=== PATIENT | female | born 2000 | race Two or more races ===

== ENCOUNTER 2021-03-13 18:09 | Emergency (ER) | payer SELFPAY ==
[2021-03-13 19:08] LABS: ACETAMINOPHEN <2.0 ug/mL; BLOOD UREA NITROGEN,BUN 10 mg/dL (7.0-18.0); CARBON DIOXIDE,CO2 26.3 mmol/L (21.0-32.0); CHLORIDE,CL 101 mmol/L (98-107); GLUCOSE RANDOM 103 mg/dL (74-106); POTASSIUM,K 3.5 mmol/L (3.5-5.1); SODIUM,NA 139 mmol/L (136-145)
--- NOTE | 2021-03-13 19:18 | EDM.PDOC ---
ED HPI GENERAL MEDICAL PROBLEM - General Chief Complaint: Behavioral/Psych Stated Complaint: SUICIDAL IDEATION Time Seen by Provider: 03/13/21 18:38 Source of Information: Reports: Patient History Limitations: Reports: No Limitations - History of Present Illness INITIAL COMMENTS - FREE TEXT/NARRATIVE: HISTORY AND PHYSICAL: History of present illness: Patient is a 21-year-old female who presents emergency room today secondary to suicidal ideation with a plan to cut her throat. Patient states that she has had worsening suicidal ideation over the past 2 weeks and states that a few days ago, she had put a knife to her throat but had gotten interrupted so did not go through with the attempt. Patient states that since then, she has continual thoughts of wanting to kill her self and as she is sitting here she looks around the room and "can only think of killing myself." Patient also states that she would "give her life for anything" at this point. Patient states that she has had inpatient evaluation in the past back home but states that she has not had anything around [place]. Patient states that she is on multiple medications and takes these. Patient denies any other symptoms or concerns. Patient denies fever, chills, chest pain, shortness of breath, or cough. Denies headache, neck stiff ness, change in vision, syncope, or near syncope. Denies nausea, vomiting, abdominal pain, diarrhea, constipation, or dysuria. Has not noted any blood in urine or stool. Patient has been eating and drinking appropriately. Review of systems: As per history of present illness and below otherwise all systems reviewed and negative. Past medical history: As per history of present illness and as reviewed below otherwise noncontributory. Surgical history: As per history of present illness and as reviewed below otherwise noncontributory. Social history: See social history for further information Family history: As per history of present illness and as reviewed below otherwise noncontributory. Physical exam: General: Patient is alert, oriented, and in no acute distress. Patient sitting comfortably on exam table. Vitals stable and reviewed by me HEENT: Atraumatic, normocephalic, pupils equal and reactive bilaterally, negative for conjunctival pallor or scleral icterus, mucous membranes moist, TMs normal bilaterally, throat clear, neck supple, nontender, trachea midline. No drooling or trismus noted. No meningeal signs. No hot potato voice noted. Lungs: Clear to auscultation, breath sounds equal bilaterally, chest nontender. Heart: S1S2, regular rate and rhythm without overt murmur Abdomen: Soft, nondistended, nontender. Negative for masses or hepatosplenomegaly. Negative for costovertebral tenderness. Pelvis: Stable nontender. Genitourinary: Deferred. Rectal: Deferred. Skin: Intact, warm, dry. No lesions or rashes noted. Extremities: Atraumatic, negative for cords or calf pain. Neurovascular unremarkable. Neuro: Awake, alert, oriented. Cranial nerves II through XII unremarkable. Cerebellum unremarkable. Motor and sensory unremarkable throughout. Exam nonfocal. Notes: Patient is a 21-year-old female who presents emergency room today secondary to suicidal ideation with a plan. Upon arrival to the ED, patient is vitally stable and well-appearing on exam. Will obtain mental health screening labs. Patient was placed on an involuntary psychiatric hold and on suicidal precautions with direct one-on-one observation. After being told that patient is placed on an involuntary psychiatric hold and suicidal precautions, she is no longer willing to receive help and trying to take back her statements of suicidal. However, discussed with patient that her statements she made to me are concerning enough to require emergent transfer for psychiatry evaluation and that I am placing hold paperwork for this to take place. Mild derangements of lab work today unremarkable. Patient does have positive for phencyclidine on her urine drug screen. Upon reevaluation of patient, she remains vitally stable and comfortable throughout stay in ED. I did call and speak to the psychiatry provider on-call for [facility], Dr. Morris, and thoroughly discussed patient's case. Dr. Morris accepting of patient. EMS arranged. Diagnostics: Mental health screening labs Therapeutics: None Impression: Suicidal ideation with a plan Plan: Transfer to Dr. Morris, psychiatry, at [facility] via EMS Definitive disposition and diagnosis as appropriate pending reevaluation and review of above. - Related Data Allergies Allergy/AdvReac Type Severity Reaction Status Date / Time cefdinir [From Omnicef] Allergy Unknown Other Verified 03/13/21 18:23 Penicillins Allergy Unknown Other Verified 03/13/21 18:23 Home Meds: Home Meds Cariprazine HCl [Vraylar] 03/13/21 [History] Venlafaxine [Effexor XR] 03/13/21 [History] hydrOXYzine HCL [hydrOXYzine] 03/13/21 [History] lamoTRIgine [LaMICtal] 03/13/21 [History] metFORMIN [Glucophage XR] 03/13/21 [History] norgestimate-ethinyl estradioL [Sprintec 28 Day Tablet] 03/13/21 [History] Past Medical History - Past Health History Medical/Surgical History: Denies Medical/Surgical History Psychiatric History: Reports: Bipolar, PTSD Social & Family History - Family History Family Medical History: No Pertinent Family History - Tobacco Use Tobacco Use Status *Q: Never Tobacco User - Caffeine Use Caffeine Use: Reports: Coffee - Recreational Drug Use Recreational Drug Use: No ED ROS GENERAL - Review of Systems Review Of Systems: Comprehensive ROS is negative, except as noted in HPI. ED EXAM, GENERAL - Physical Exam Exam: See Below (see dictation) Course - Vital Signs Last Recorded V/S: Last Vital Signs Temp 98.3 F 03/13/21 18:13 Pulse 76 03/13/21 22:45 Resp 18 03/13/21 18:15 BP 119/62 03/13/21 22:45 Pulse Ox 98 03/13/21 22:45 - Orders/Labs/Meds Orders: Active Orders 24 hr Category Date Time Status EKG 12 Lead [EKG Documentation Completion] [RC] STAT Care 03/13/21 20:07 Active Labs: Laboratory Tests 03/13/21 03/13/21 03/13/21 Range/Units 18:35 18:35 18:35 WBC 9.76 (4.0-11.0) K/uL RBC 4.65 (4.30-5.90) M/uL Hgb 12.6 (12.0-16.0) g/dL Hct 38.6 (36.0-46.0) % MCV 83.0 (80.0-98.0) fL MCH 27.1 (27.0-32.0) pg MCHC 32.6 (31.0-37.0) g/dL RDW Std Deviation 46.5 (28.0-62.0) fl RDW Coeff of Emerson 15 (11.0-15.0) % Plt Count 344 (150-400) K/uL MPV 9.90 (7.40-12.00) fL Neut % (Auto) 61.6 (48.0-80.0) % Lymph % (Auto) 28.4 (16.0-40.0) % [place] % (Auto) 9.5 (0.0-15.0) % Eos % (Auto) 0.3 (0.0-7.0) % Baso % (Auto) 0.2 (0.0-1.5) % Neut # (Auto) 6.0 H (1.4-5.7) K/uL Lymph # (Auto) 2.8 H (0.6-2.4) K/uL [place] # (Auto) 0.9 H (0.0-0.8) K/uL Eos # (Auto) 0.0 (0.0-0.7) K/uL Baso # (Auto) 0.0 (0.0-0.1) K/uL Nucleated RBC % 0.0 /100WBC Nucleated RBCs # 0 K/uL Sodium 139 (136-145) mmol/L Potassium 3.5 (3.5-5.1) mmol/L Chloride 101 (98-107) mmol/L Carbon Dioxide 26.3 (21.0-32.0) mmol/L BUN 10 (7.0-18.0) mg/dL Creatinine 0.8 (0.6-1.0) mg/dL Est Cr Clr Drug Dosing 84.65 mL/min Estimated GFR (MDRD) > 60.0 ml/min Glucose 103 (74-106) mg/dL Calcium 9.1 (8.5-10.1) mg/dL Phosphorus 3.4 (2.6-4.7) mg/dL Magnesium 2.0 (1.8-2.4) mg/dL Total Bilirubin 0.3 (0.2-1.0) mg/dL AST 22 (15-37) IU/L ALT 22 (14-63) IU/L Alkaline Phosphatase 80 (46-116) U/L Total Protein 8.0 (6.4-8.2) g/dL Albumin 4.4 (3.4-5.0) g/dL Globulin 3.6 (2.6-4.0) g/dL Albumin/Globulin Ratio 1.2 (0.9-1.6) HCG, Qual NEGATIVE (NEG) Salicylates 1.8 (0-20) mg/dL Urine Opiates Screen (NEGATIVE) Ur Oxycodone Screen (NEGATIVE) Urine Methadone Screen (NEGATIVE) Acetaminophen <2.0 ug/mL Ur Barbiturates Screen (NEGATIVE) Ur Phencyclidine Scrn (NEGATIVE) Ur Amphetamine Screen (NEGATIVE) U Methamphetamines Scrn (NEGATIVE) U Benzodiazepines Scrn (NEGATIVE) U Cocaine Metab Screen (NEGATIVE) U Marijuana (THC) Screen (NEGATIVE) Ethyl Alcohol <3 mg/dL SARS-CoV-2 RNA (SHARON) (NEGATIVE) 03/13/21 03/13/21 Range/Units 20:05 20:05 WBC (4.0-11.0) K/uL RBC (4.30-5.90) M/uL Hgb (12.0-16.0) g/dL Hct (36.0-46.0) % MCV (80.0-98.0) fL MCH (27.0-32.0) pg MCHC (31.0-37.0) g/dL RDW Std Deviation (28.0-62.0) fl RDW Coeff of Emerson (11.0-15.0) % Plt Count (150-400) K/uL MPV (7.40-12.00) fL Neut % (Auto) (48.0-80.0) % Lymph % (Auto) (16.0-40.0) % [place] % (Auto) (0.0-15.0) % Eos % (Auto) (0.0-7.0) % Baso % (Auto) (0.0-1.5) % Neut # (Auto) (1.4-5.7) K/uL Lymph # (Auto) (0.6-2.4) K/uL [place] # (Auto) (0.0-0.8) K/uL Eos # (Auto) (0.0-0.7) K/uL Baso # (Auto) (0.0-0.1) K/uL Nucleated RBC % /100WBC Nucleated RBCs # K/uL Sodium (136-145) mmol/L Potassium (3.5-5.1) mmol/L Chloride (98-107) mmol/L Carbon Dioxide (21.0-32.0) mmol/L BUN (7.0-18.0) mg/dL Creatinine (0.6-1.0) mg/dL Est Cr Clr Drug Dosing mL/min Estimated GFR (MDRD) ml/min Glucose (74-106) mg/dL Calcium (8.5-10.1) mg/dL Phosphorus (2.6-4.7) mg/dL Magnesium (1.8-2.4) mg/dL Total Bilirubin (0.2-1.0) mg/dL AST (15-37) IU/L ALT (14-63) IU/L Alkaline Phosphatase (46-116) U/L Total Protein (6.4-8.2) g/dL Albumin (3.4-5.0) g/dL Globulin (2.6-4.0) g/dL Albumin/Globulin Ratio (0.9-1.6) HCG, Qual (NEG) Salicylates (0-20) mg/dL Urine Opiates Screen NEGATIVE (NEGATIVE) Ur Oxycodone Screen NEGATIVE (NEGATIVE) Urine Methadone Screen NEGATIVE (NEGATIVE) Acetaminophen ug/mL Ur Barbiturates Screen NEGATIVE (NEGATIVE) Ur Phencyclidine Scrn POSITIVE (NEGATIVE) Ur Amphetamine Screen NEGATIVE (NEGATIVE) U Methamphetamines Scrn NEGATIVE (NEGATIVE) U Benzodiazepines Scrn NEGATIVE (NEGATIVE) U Cocaine Metab Screen NEGATIVE (NEGATIVE) U Marijuana (THC) Screen NEGATIVE (NEGATIVE) Ethyl Alcohol mg/dL SARS-CoV-2 RNA (SHARON) NEGATIVE (NEGATIVE) Departure - Departure Time of Disposition: 20:45 Disposition: DC/Tfer to Psych Hosp/Unit [address] Clinical Impression: Suicidal ideation - Discharge Information Referrals: PCP,None [Primary Care Provider] - Forms: ED Department Discharge Sepsis Event Note (ED) - Evaluation Sepsis Screening Result: No Definite Risk - Focused Exam Vital Signs: Vital Signs Temp Pulse Pulse Resp BP BP Pulse Ox 03/13/21 22:45 76 119/62 98 03/13/21 22:15 82 112/62 97 03/13/21 21:45 87 111/67 98 03/13/21 21:15 94 125/88 98 03/13/21 20:45 78 115/80 98 03/13/21 20:15 82 124/75 97 03/13/21 19:45 86 108/78 97 03/13/21 19:30 84 109/67 98 03/13/21 19:15 81 114/77 98 03/13/21 18:45 82 112/74 98 03/13/21 18:15 77 18 111/78 96 03/13/21 18:13 98.3 F 78 18 111/72 97
--- NOTE | 2021-03-14 05:52 | PCM.EKG ---
#1 Interpretation EKG Interpretation Comments: EKG: As interpreted by ER physician: Maggie: Nonspecific ST-T wave abnormalities Normal axis No evidence of ST elevation MD Normal sinus rhythm heart rate of 75
== END 2021-03-14 02:10 ==
LOC: EDBD 18:09 → MW.ED 18:09
DX: R45.851 Suicidal ideations (principal); Z88.0 Allergy status to penicillin; Z88.1 Allergy status to other antibiotic agents; Z79.84 Long term (current) use of oral hypoglycemic drugs; Z20.822 Contact with and (suspected) exposure to COVID-19
CPT/HCPCS: 36415; 80053; 80143; 80179; 80305-QW; 80307; 83735; 84100; 84703; 85025; 93005; 99285-25; U0002

== ENCOUNTER 2021-03-25 17:47 | Observation (INO) | payer SELFPAY ==
--- NOTE | 2021-03-25 18:24 | PCM.EKG ---
#1 Interpretation EKG Date: 03/25/21 Time: 18:15 Rhythm: NSR Rate (Beats/Min): 75 Ste[place]: Normal P-Wave: Present QRS: Normal ST-T: Normal QT: Normal NE/PQ Interval: 173 Comparison: NA - No Prior EKG EKG Interpretation Comments: no ischemic changes, no QT prolongation
--- NOTE | 2021-03-25 18:33 | EDM.PDOC ---
ED HPI GENERAL MEDICAL PROBLEM - General Chief Complaint: Behavioral/Psych Stated Complaint: OVERDOSE Time Seen by Provider: 03/25/21 17:55 Source of Information: Reports: Patient History Limitations: Reports: No Limitations - History of Present Illness INITIAL COMMENTS - FREE TEXT/NARRATIVE: HISTORY AND PHYSICAL: History of present illness: Patient is a 21-year-old female who presents emergency room today with concern of suicidal attempt by overdose by taking 150 mg 20 tabs of trazodone approximately 30 to 45 minutes ago. Patient states that she was talking to this isatu that she was hoping that would become her boyfriend eventually and he had told her today that he was no longer interested in her. Patient states that she has been wanting to ever since her last transfer approximately [address] [facility]. Patient states that she does absolutely not want to be alive any longer. Patient states she told her mom about the overdose who called EMS to bring her to the emergency room. Patient states she has not ingested any other substances or made any other attempts. Patient denies fever, chills, chest pain, shortness of breath, or cough. Denies headache, neck stiff ness, change in vision, syncope, or near syncope. Denies nausea, vomiting, abdominal pain, diarrhea, constipation, or dysuria. Has not noted any blood in urine or stool. Patient has been eating and drinking appropriately. Review of systems: As per history of present illness and below otherwise all systems reviewed and negative. Past medical history: As per history of present illness and as reviewed below otherwise noncontributory. Surgical history: As per history of present illness and as reviewed below otherwise noncontributory. Social history: See social history for further information Family history: As per history of present illness and as reviewed below otherwise noncontributory. Physical exam: General: Patient is oriented, and in no acute distress. Patient laying comfortably on exam table, sleeping throughout exam but arousable and will answer questions appropriately. Vitals stable and reviewed by me. HEENT: Atraumatic, normocephalic, pupils equal and reactive bilaterally, negative for conjunctival pallor or scleral icterus, mucous membranes moist, TMs normal bilaterally, throat clear, neck supple, nontender, trachea midline. No drooling or trismus noted. No meningeal signs. No hot potato voice noted. Lungs: Clear to auscultation, breath sounds equal bilaterally, chest nontender. Heart: S1S2, regular rate and rhythm without overt murmur Abdomen: Soft, nondistended, nontender. Negative for masses or hepatosplenomegaly. Negative for costovertebral tenderness. Pelvis: Stable nontender. Genitourinary: Deferred. Rectal: Deferred. Skin: Intact, warm, dry. No lesions or rashes noted. Extremities: Atraumatic, negative for cords or calf pain. Neurovascular unremarkable. Neuro: Awake, alert, oriented. Cranial nerves II through XII unremarkable. C erebellum unremarkable. Motor and sensory unremarkable throughout. Exam nonfocal. Notes: Patient is a 21-year-old female who presents emergency room today with concern of suicidal overdose of trazodone, 150 mg with 20 tabs approximately 30 minutes prior to arrival to the emergency room. Upon arrival to the ED, patient is vitally stable and laying comfortably on exam table. She is sleeping perio dically throughout my exam but is arousable and able to wake up and answer questions appropriately. Upon arrival to the ED, patient was placed immediately on suicidal precautions with direct one-on-one supervision. Involuntary hold paperwork completed upon arrival to the emergency room as well. I did call [place] poison control center who recommends a total of 4 hours of observation in the emergency room with peak hours of 2 hours with concern of drowsiness, hypotension, and QT prolonging. Recommend repeating EKG every 2 hours and close monitoring of vital signs. Initial EKG--See Dr. Greene's dictation for specific EKG interpretation. However, normal sinus rhythm without STEMI or acute changes. QTc 456 CBC mild derangements are unremarkable. CMP is unremarkable. Magnesium is within normal limits. Urinalysis shows 1+ bacteria, 5-8 white blood cells with moderate leukocyte Estrace. Possible early UTI. Will give dose of Bactrim DS today. hCG is negative. Salicylate/acetaminophen/at the alcohol negative. Urine drug screen negative. Repeat EKG x 1--See Dr Christie dictation for specific EKG interpretation. However, sinus bradycardia with rate of 59, without STEMI. QTc 483 Upon reevaluation of patient, blood pressures remain soft around 95/51 with a MAP of 65 or greater consistently throughout stay in the emergency room. Heart rate has slightly decreased to 62. Patient is still sleeping on exam but is able to be aroused and answer questions appropriately when she wakes up for falling back asleep. I did speak to poison control again regarding patient's EKG, soft blood pressures, and bradycardia. They would like patient to receive magnesium and potassium and continue to monitor. Repeat EKG x 2--See Dr. Christie dictation for specific EKG interpretation. However, continuing to prolong QT interval with corrected QTC of 535. Given that patient is continuing to have prolonged QT despite the peak concern directed by poison control, will admit to ICU for serial close monitoring. I did call and speak to the hospitalist on-call, Dr. Hinojosa, and thoroughly discussed patient's case. Will admit to the ICU to Dr. Hinojosa. Diagnostics: Mental health evaluation labs, Q2-hour EKG Therapeutics: NS, Potassium, Magnesium Impression: Suicide attempt Medication overdose, intentional Plan: Admit to the ICU observation to Dr. Hinojosa Definitive disposition and diagnosis as appropriate pending reevaluation and review of above. - Related Data Allergies Allergy/AdvReac Type Severity Reaction Status Date / Time cefdinir [From Omnicef] Allergy Unknown Other Verified 03/25/21 17:59 Penicillins Allergy Unknown Other Verified 03/25/21 17:59 Home Meds: Home Meds Cariprazine HCl [Vraylar] 03/13/21 [History] Venlafaxine [Effexor XR] 03/13/21 [History] hydrOXYzine HCL [hydrOXYzine] 03/13/21 [History] lamoTRIgine [LaMICtal] 03/13/21 [History] metFORMIN [Glucophage XR] 03/13/21 [History] norgestimate-ethinyl estradioL [Sprintec 28 Day Tablet] 03/13/21 [History] Past Medical History - Past Health History Medical/Surgical History: Denies Medical/Surgical History Psychiatric History: Reports: Anxiety, Bipolar, Depression, PTSD, Suicide Attempt, Suicidal Ideation - Infectious Disease History Infectious Disease History: Reports: None Social & Family History - Family History Family Medical History: No Pertinent Family History - Tobacco Use Tobacco Use Status *Q: Never Tobacco User - Caffeine Use Caffeine Use: Reports: Coffee - Recreational Drug Use Recreational Drug Use: No ED ROS GENERAL - Review of Systems Review Of Systems: Comprehensive ROS is negative, except as noted in HPI. ED EXAM, GENERAL - Physical Exam Exam: See Below (see dictation) Course - Vital Signs Last Recorded V/S: Last Vital Signs Temp 97.5 F 03/25/21 17:50 Pulse 70 03/25/21 22:30 Resp 18 03/25/21 22:30 BP 92/47 L 03/25/21 22:30 Pulse Ox 98 03/25/21 22:30 - Orders/Labs/Meds Orders: Active Orders 24 hr Category Date Time Status EKG Documentation Completion [RC] STAT Care 03/25/21 18:05 Active EKG Documentation Completion [RC] STAT Care 03/25/21 20:24 Active EKG Documentation Completion [RC] STAT Care 03/25/21 22:25 Active CORONAVIRUS COVID-19 SHARON [MOLEC] Stat Lab 03/25/21 22:39 Ordered Magnesium Sulfate/Water [Magnesium Sulfate in Water 4 Med 03/25/21 21:26 Active GM/100 ML] 4 gm Premix Bag 1 bag IV ONETIME Sodium Chloride 0.9% [Normal Saline] 1,000 ml Med 03/25/21 22:38 Active IV .Bolus Medication Orders Magnesium Sulfate 4 gm/ Premix 100 mls @ 25 mls/hr IV ONETIME ONE Stop: 03/26/21 01:25 Last Admin: 03/25/21 22:07 Dose: 25 mls/hr Documented by: CAREMARS Sodium Chloride (Normal Saline) 1,000 mls @ 999 mls/hr IV .Bolus ONE Stop: 03/25/21 23:38 Last Admin: 03/25/21 22:42 Dose: 999 mls/hr Documented by: CAREMARS Labs: Laboratory Tests 03/25/21 03/25/21 03/25/21 Range/Units 17:57 18:05 18:05 WBC (4.0-11.0) K/uL RBC (4.30-5.90) M/uL Hgb (12.0-16.0) g/dL Hct (36.0-46.0) % MCV (80.0-98.0) fL MCH (27.0-32.0) pg MCHC (31.0-37.0) g/dL RDW Std Deviation (28.0-62.0) fl RDW Coeff of Emerson (11.0-15.0) % Plt Count (150-400) K/uL MPV (7.40-12.00) fL Neut % (Auto) (48.0-80.0) % Lymph % (Auto) (16.0-40.0) % [place] % (Auto) (0.0-15.0) % Eos % (Auto) (0.0-7.0) % Baso % (Auto) (0.0-1.5) % Neut # (Auto) (1.4-5.7) K/uL Lymph # (Auto) (0.6-2.4) K/uL [place] # (Auto) (0.0-0.8) K/uL Eos # (Auto) (0.0-0.7) K/uL Baso # (Auto) (0.0-0.1) K/uL Nucleated RBC % /100WBC Nucleated RBCs # K/uL Sodium (136-145) mmol/L Potassium (3.5-5.1) mmol/L Chloride (98-107) mmol/L Carbon Dioxide (21.0-32.0) mmol/L BUN (7.0-18.0) mg/dL Creatinine (0.6-1.0) mg/dL Est Cr Clr Drug Dosing mL/min Estimated GFR (MDRD) ml/min Glucose (74-106) mg/dL Calcium (8.5-10.1) mg/dL Magnesium (1.8-2.4) mg/dL Total Bilirubin (0.2-1.0) mg/dL AST (15-37) IU/L ALT (14-63) IU/L Alkaline Phosphatase (46-116) U/L Total Protein (6.4-8.2) g/dL Albumin (3.4-5.0) g/dL Globulin (2.6-4.0) g/dL Albumin/Globulin Ratio (0.9-1.6) Urine Color YELLOW Urine Appearance HAZY Urine pH 6.0 (5.0-8.0) Ur Specific [place] 1.020 (1.001-1.035) Urine Protein NEGATIVE (NEGATIVE) mg/dL Urine Glucose (UA) NEGATIVE (NEGATIVE) mg/dL Urine Ketones NEGATIVE (NEGATIVE) mg/dL Urine Occult Blood NEGATIVE (NEGATIVE) Urine Nitrite NEGATIVE (NEGATIVE) Urine Bilirubin NEGATIVE (NEGATIVE) Urine Urobilinogen 0.2 (<2.0) EU/dL Ur Leukocyte Esterase MODERATE H (NEGATIVE) Urine RBC 0-2 (0-2/HPF) Urine WBC 5-8 (0-5/HPF) Ur Epithelial Cells FEW (NONE-FEW) Urine Bacteria 1+ H (NEGATIVE) Urine Mucus LIGHT (NONE-MOD) Urine HCG, Qual NEGATIVE (NEGATIVE) Salicylates (0-20) mg/dL Urine Opiates Screen NEGATIVE (NEGATIVE) Ur Oxycodone Screen NEGATIVE (NEGATIVE) Urine Methadone Screen NEGATIVE (NEGATIVE) Acetaminophen ug/mL Ur Barbiturates Screen NEGATIVE (NEGATIVE) Ur Phencyclidine Scrn NEGATIVE (NEGATIVE) Ur Amphetamine Screen NEGATIVE (NEGATIVE) U Methamphetamines Scrn NEGATIVE (NEGATIVE) U Benzodiazepines Scrn NEGATIVE (NEGATIVE) U Cocaine Metab Screen NEGATIVE (NEGATIVE) U Marijuana (THC) Screen NEGATIVE (NEGATIVE) Ethyl Alcohol mg/dL 03/25/21 03/25/21 Range/Units 18:14 18:14 WBC 8.28 (4.0-11.0) K/uL RBC 4.34 (4.30-5.90) M/uL Hgb 11.7 L (12.0-16.0) g/dL Hct 36.0 (36.0-46.0) % MCV 82.9 (80.0-98.0) fL MCH 27.0 (27.0-32.0) pg MCHC 32.5 (31.0-37.0) g/dL RDW Std Deviation 46.2 (28.0-62.0) fl RDW Coeff of Emerson 15 (11.0-15.0) % Plt Count 355 (150-400) K/uL MPV 9.60 (7.40-12.00) fL Neut % (Auto) 55.1 (48.0-80.0) % Lymph % (Auto) 32.7 (16.0-40.0) % [place] % (Auto) 11.5 (0.0-15.0) % Eos % (Auto) 0.5 (0.0-7.0) % Baso % (Auto) 0.2 (0.0-1.5) % Neut # (Auto) 4.6 (1.4-5.7) K/uL Lymph # (Auto) 2.7 H (0.6-2.4) K/uL [place] # (Auto) 1.0 H (0.0-0.8) K/uL Eos # (Auto) 0.0 (0.0-0.7) K/uL Baso # (Auto) 0.0 (0.0-0.1) K/uL Nucleated RBC % 0.0 /100WBC Nucleated RBCs # 0 K/uL Sodium 140 (136-145) mmol/L Potassium 3.5 (3.5-5.1) mmol/L Chloride 105 (98-107) mmol/L Carbon Dioxide 27.0 (21.0-32.0) mmol/L BUN 11 (7.0-18.0) mg/dL Creatinine 0.9 (0.6-1.0) mg/dL Est Cr Clr Drug Dosing 75.24 mL/min Estimated GFR (MDRD) > 60.0 ml/min Glucose 97 (74-106) mg/dL Calcium 8.7 (8.5-10.1) mg/dL Magnesium 2.0 (1.8-2.4) mg/dL Total Bilirubin 0.4 (0.2-1.0) mg/dL AST 19 (15-37) IU/L ALT 25 (14-63) IU/L Alkaline Phosphatase 76 (46-116) U/L Total Protein 7.3 (6.4-8.2) g/dL Albumin 4.0 (3.4-5.0) g/dL Globulin 3.3 (2.6-4.0) g/dL Albumin/Globulin Ratio 1.2 (0.9-1.6) Urine Color Urine Appearance Urine pH (5.0-8.0) Ur Specific [place] (1.001-1.035) Urine Protein (NEGATIVE) mg/dL Urine Glucose (UA) (NEGATIVE) mg/dL Urine Ketones (NEGATIVE) mg/dL Urine Occult Blood (NEGATIVE) Urine Nitrite (NEGATIVE) Urine Bilirubin (NEGATIVE) Urine Urobilinogen (<2.0) EU/dL Ur Leukocyte Esterase (NEGATIVE) Urine RBC (0-2/HPF) Urine WBC (0-5/HPF) Ur Epithelial Cells (NONE-FEW) Urine Bacteria (NEGATIVE) Urine Mucus (NONE-MOD) Urine HCG, Qual (NEGATIVE) Salicylates 0.2 (0-20) mg/dL Urine Opiates Screen (NEGATIVE) Ur Oxycodone Screen (NEGATIVE) Urine Methadone Screen (NEGATIVE) Acetaminophen <2.0 ug/mL Ur Barbiturates Screen (NEGATIVE) Ur Phencyclidine Scrn (NEGATIVE) Ur Amphetamine Screen (NEGATIVE) U Methamphetamines Scrn (NEGATIVE) U Benzodiazepines Scrn (NEGATIVE) U Cocaine Metab Screen (NEGATIVE) U Marijuana (THC) Screen (NEGATIVE) Ethyl Alcohol < 3.0 mg/dL Meds: Medications Generic Name Dose Route Start Last Admin Trade Name Freq PRN Reason Stop Dose Admin Magnesium Sulfate 4 gm/ Premix 100 mls @ 25 mls/hr 03/25/21 21:26 03/25/21 22:07 IV 03/26/21 01:25 25 mls/hr ONETIME ONE Administration Sodium Chloride 1,000 mls @ 999 mls/hr 03/25/21 22:38 03/25/21 22:42 Normal Saline IV 03/25/21 23:38 999 mls/hr .Bolus ONE Administration Discontinued Medications Generic Name Dose Route Start Last Admin Trade Name Freq PRN Reason Stop Dose Admin Sodium Chloride 1,000 mls @ 999 mls/hr 03/25/21 21:23 03/25/21 22:07 Normal Saline IV 03/25/21 22:23 999 mls/hr STAT ONE Administration Potassium Chloride 40 meq 03/25/21 21:26 03/25/21 22:08 Potassium Chloride 20 Meq Tab.Er PO 03/25/21 21:27 40 meq ONETIME ONE Administration Trimethoprim/Sulfamethoxazole 1 tab 03/25/21 22:01 03/25/21 22:32 Sulfamethoxazole/Trimethoprim 800-160 Mg Tab PO 03/25/21 22:02 1 tab ONETIME ONE Administration Departure - Departure Time of Disposition: 22:55 Disposition: Refer to Observation Clinical Impression: Suicide attempt Intentional drug overdose Qualifiers: Encounter type: initial encounter Qualified Code(s): T50.902A - Poisoning by unspecified drugs, medicaments and biological substances, intentional self-harm, initial encounter - Discharge Information Referrals: PCP,None [Primary Care Provider] - Forms: ED Department Discharge Sepsis Event Note (ED) - Evaluation Sepsis Screening Result: No Definite Risk - Focused Exam Vital Signs: Vital Signs Temp Pulse Resp BP Pulse Ox 03/25/21 22:30 70 18 92/47 L 98 03/25/21 22:00 62 16 95/51 L 97 03/25/21 21:30 63 16 97/51 L 98 03/25/21 21:00 58 L 16 95/50 L 99 03/25/21 20:30 62 16 102/54 L 100 03/25/21 20:00 64 16 92/60 98 03/25/21 19:30 71 16 97/55 L 98 03/25/21 19:20 71 16 97/55 L 97 03/25/21 18:50 72 18 99/63 98 03/25/21 18:20 77 18 91/57 L 100 03/25/21 17:50 97.5 F 75 16 104/59 L 98 - My Orders Last 24 Hours: My Active Orders 03/25/21 18:05 EKG Documentation Completion [RC] STAT 03/25/21 20:24 EKG Documentation Completion [RC] STAT 03/25/21 21:26 Magnesium Sulfate/Water [Magnesium Sulfate in Water 4 GM/100 ML] 4 gm Premix Bag 1 bag IV ONETIME 03/25/21 22:25 EKG Documentation Completion [RC] STAT 03/25/21 22:38 Sodium Chloride 0.9% [Normal Saline] 1,000 ml IV .Bolus 03/25/21 22:39 CORONAVIRUS COVID-19 SHARON [MOLEC] Stat - Assessment/Plan Last 24 Hours: My Active Orders 03/25/21 18:05 EKG Documentation Completion [RC] STAT 03/25/21 20:24 EKG Documentation Completion [RC] STAT 03/25/21 21:26 Magnesium Sulfate/Water [Magnesium Sulfate in Water 4 GM/100 ML] 4 gm Premix Bag 1 bag IV ONETIME 03/25/21 22:25 EKG Documentation Completion [RC] STAT 03/25/21 22:38 Sodium Chloride 0.9% [Normal Saline] 1,000 ml IV .Bolus 03/25/21 22:39 CORONAVIRUS COVID-19 SHARON [MOLEC] Stat
[2021-03-25 18:42] LABS: ACETAMINOPHEN <2.0 ug/mL; BLOOD UREA NITROGEN,BUN 11 mg/dL (7.0-18.0); CHLORIDE,CL 105 mmol/L (98-107); GLUCOSE RANDOM 97 mg/dL (74-106); POTASSIUM,K 3.5 mmol/L (3.5-5.1); SODIUM,NA 140 mmol/L (136-145)
[2021-03-25] MEDS ORDERED: Sodium Chloride 0.9% 1,000 ML IV ONE ×2 (21:23→22:38)
[2021-03-25] MEDS ORDERED: Potassium Chloride 20 MEQ Tab.ER PO ONE (21:26)
[2021-03-25] MEDS ORDERED: Magnesium Sulfate/Water 4 GM in Premix Bag 1 BAG IV ONE (21:26)
[2021-03-25] MEDS ORDERED: Sulfamethoxazole/Trimethoprim 800-160 MG Tab PO ONE (22:01)
--- NOTE | 2021-03-25 22:44 | PCM.EKG ---
#1 Interpretation EKG Date: 03/25/21 Time: 20:36 EKG Interpretation Comments: Sinus rhythm with a rate of 59 QTC 483 which is borderline but longer than prior EKG no acute ischemia unremarkable axis #2 Interpretation EKG Date: 03/25/21 Time: 22:51 EKG Interpretation Comments: Sinus rhythm with a rate of 73 WA interval borderline 206 QTc interval prolonged at 535 no acute ischemia normal axis
--- NOTE | 2021-03-26 00:11 | PCM.EKG ---
#1 Interpretation EKG Date: 03/26/21 Time: 00:10 EKG Interpretation Comments: Sinus rhythm normal axis no acute ischemia QTC remains prolonged at 543
--- NOTE | 2021-03-26 01:00 | PCM.HP.2 ---
H&P History of Present Illness - General Date of Service: 03/26/21 Admit Problem/Dx: Admission Diagnosis/Problem Admission Diagnosis/Problem Medication overdose - History of Present Illness Initial Comments - Free Text/Narative: 21 yo female with pmh of depression who presents to the ED after taking 20 of her 150mg tablets of trazadone. Patient reports she was trying to kill herself. She states she has low self esteem and isatu he likes recently told her he was not interested in her. In the ED poison controlled was called and recommended admission to monitor qtc and low blood pressure. PAtient currently denies any dizziness, shortness of breath, fevers or dysuria. - Related Data Allergies/Adverse Reactions: Allergies Allergy/AdvReac Type Severity Reaction Status Date / Time cefdinir [From Omnicef] Allergy Unknown Other Verified 03/26/21 00:35 Penicillins Allergy Unknown Other Verified 03/26/21 00:35 Home Medications: Home Meds Cariprazine HCl [Vraylar] 03/13/21 [History] Venlafaxine [Effexor XR] 03/13/21 [History] hydrOXYzine HCL [hydrOXYzine] 1 tab PO DAILY 03/13/21 [History] lamoTRIgine [LaMICtal] 03/13/21 [History] metFORMIN [Glucophage XR] 03/13/21 [History] norgestimate-ethinyl estradioL [Sprintec 28 Day Tablet] 1 tab PO DAILY 03/13/21 [History] Past Medical History - Past Health History Medical/Surgical History: Denies Medical/Surgical History Psychiatric History: Reports: Anxiety, Bipolar, Depression, PTSD, Suicide Attempt, Suicidal Ideation - Infectious Disease History Infectious Disease History: Reports: None Social & Family History - Family History Family Medical History: No Pertinent Family History - Tobacco Use Tobacco Use Status *Q: Never Tobacco User - Caffeine Use Caffeine Use: Reports: Energy Drinks - Recreational Drug Use Recreational Drug Use: Yes Recreational Drug Type: Reports: Marijuana/Hashish, Other (see below) Other Recreational Drug Type: 2019 like 4 times H&P Review of Systems - Review of Systems: Review Of Systems: Comprehensive ROS is negative, except as noted in HPI. Exam - Exam Exam: See Below - Vital Signs Vital Signs: Last Vital Signs Temp 36.4 C 03/25/21 17:50 Pulse 75 03/26/21 00:00 Resp 16 08/02/21 00:00 BP 93/46 L 03/26/21 00:00 Pulse Ox 93 L 03/26/21 00:00 Weight: 81.647 kg - Exam General: Alert, Oriented HEENT: Mucosa Moist & [place] Neck: Supple Lungs: Clear to Auscultation, Normal Respiratory Effort Cardiovascular: Regular Rate, Regular Rhythm GI/Abdominal Exam: Normal Bowel Sounds, Soft, Non-Tender Extremities: Non-Tender, No Pedal Edema Skin: Warm, Dry, Intact Neurological: No: Focal Deficit - Patient Data Lab Results Last 24 hrs: Laboratory Results - last 24 hr 03/25/21 03/25/21 03/25/21 Range/Units 17:57 18:05 18:05 WBC (4.0-11.0) K/uL RBC (4.30-5.90) M/uL Hgb (12.0-16.0) g/dL Hct (36.0-46.0) % MCV (80.0-98.0) fL MCH (27.0-32.0) pg MCHC (31.0-37.0) g/dL RDW Std Deviation (28.0-62.0) fl RDW Coeff of [place] (11.0-15.0) % Plt Count (150-400) K/uL MPV (7.40-12.00) fL Neut % (Auto) (48.0-80.0) % Lymph % (Auto) (16.0-40.0) % [place] % (Auto) (0.0-15.0) % Eos % (Auto) (0.0-7.0) % Baso % (Auto) (0.0-1.5) % Neut # (Auto) (1.4-5.7) K/uL Lymph # (Auto) (0.6-2.4) K/uL [place] # (Auto) (0.0-0.8) K/uL Eos # (Auto) (0.0-0.7) K/uL Baso # (Auto) (0.0-0.1) K/uL Nucleated RBC % /100WBC Nucleated RBCs # K/uL Sodium (136-145) mmol/L Potassium (3.5-5.1) mmol/L Chloride (98-107) mmol/L Carbon Dioxide (21.0-32.0) mmol/L BUN (7.0-18.0) mg/dL Creatinine (0.6-1.0) mg/dL Est Cr Clr Drug Dosing mL/min Estimated GFR (MDRD) ml/min Glucose (74-106) mg/dL Calcium (8.5-10.1) mg/dL Magnesium (1.8-2.4) mg/dL Total Bilirubin (0.2-1.0) mg/dL AST (15-37) IU/L ALT (14-63) IU/L Alkaline Phosphatase (46-116) U/L Total Protein (6.4-8.2) g/dL Albumin (3.4-5.0) g/dL Globulin (2.6-4.0) g/dL Albumin/Globulin Ratio (0.9-1.6) Urine Color YELLOW Urine Appearance HAZY Urine pH 6.0 (5.0-8.0) Ur Specific [place] 1.020 (1.001-1.035) Urine Protein NEGATIVE (NEGATIVE) mg/dL Urine Glucose (UA) NEGATIVE (NEGATIVE) mg/dL Urine Ketones NEGATIVE (NEGATIVE) mg/dL Urine Occult Blood NEGATIVE (NEGATIVE) Urine Nitrite NEGATIVE (NEGATIVE) Urine Bilirubin NEGATIVE (NEGATIVE) Urine Urobilinogen 0.2 (<2.0) EU/dL Ur Leukocyte Esterase MODERATE H (NEGATIVE) Urine RBC 0-2 (0-2/HPF) Urine WBC 5-8 (0-5/HPF) Ur Epithelial Cells FEW (NONE-FEW) Urine Bacteria 1+ H (NEGATIVE) Urine Mucus LIGHT (NONE-MOD) Urine HCG, Qual NEGATIVE (NEGATIVE) Salicylates (0-20) mg/dL Urine Opiates Screen NEGATIVE (NEGATIVE) Ur Oxycodone Screen NEGATIVE (NEGATIVE) Urine Methadone Screen NEGATIVE (NEGATIVE) Acetaminophen ug/mL Ur Barbiturates Screen NEGATIVE (NEGATIVE) Ur Phencyclidine Scrn NEGATIVE (NEGATIVE) Ur Amphetamine Screen NEGATIVE (NEGATIVE) U Methamphetamines Scrn NEGATIVE (NEGATIVE) U Benzodiazepines Scrn NEGATIVE (NEGATIVE) U Cocaine Metab Screen NEGATIVE (NEGATIVE) U Marijuana (THC) Screen NEGATIVE (NEGATIVE) Ethyl Alcohol mg/dL SARS-CoV-2 RNA (SHARON) (NEGATIVE) 03/25/21 03/25/21 03/25/21 Range/Units 18:14 18:14 22:44 WBC 8.28 (4.0-11.0) K/uL RBC 4.34 (4.30-5.90) M/uL Hgb 11.7 L (12.0-16.0) g/dL Hct 36.0 (36.0-46.0) % MCV 82.9 (80.0-98.0) fL MCH 27.0 (27.0-32.0) pg MCHC 32.5 (31.0-37.0) g/dL RDW Std Deviation 46.2 (28.0-62.0) fl RDW Coeff of Emerson 15 (11.0-15.0) % Plt Count 355 (150-400) K/uL MPV 9.60 (7.40-12.00) fL Neut % (Auto) 55.1 (48.0-80.0) % Lymph % (Auto) 32.7 (16.0-40.0) % [place] % (Auto) 11.5 (0.0-15.0) % Eos % (Auto) 0.5 (0.0-7.0) % Baso % (Auto) 0.2 (0.0-1.5) % Neut # (Auto) 4.6 (1.4-5.7) K/uL Lymph # (Auto) 2.7 H (0.6-2.4) K/uL [place] # (Auto) 1.0 H (0.0-0.8) K/uL Eos # (Auto) 0.0 (0.0-0.7) K/uL Baso # (Auto) 0.0 (0.0-0.1) K/uL Nucleated RBC % 0.0 /100WBC Nucleated RBCs # 0 K/uL Sodium 140 (136-145) mmol/L Potassium 3.5 (3.5-5.1) mmol/L Chloride 105 (98-107) mmol/L Carbon Dioxide 27.0 (21.0-32.0) mmol/L BUN 11 (7.0-18.0) mg/dL Creatinine 0.9 (0.6-1.0) mg/dL Est Cr Clr Drug Dosing 75.24 mL/min Estimated GFR (MDRD) > 60.0 ml/min Glucose 97 (74-106) mg/dL Calcium 8.7 (8.5-10.1) mg/dL Magnesium 2.0 (1.8-2.4) mg/dL Total Bilirubin 0.4 (0.2-1.0) mg/dL AST 19 (15-37) IU/L ALT 25 (14-63) IU/L Alkaline Phosphatase 76 (46-116) U/L Total Protein 7.3 (6.4-8.2) g/dL Albumin 4.0 (3.4-5.0) g/dL Globulin 3.3 (2.6-4.0) g/dL Albumin/Globulin Ratio 1.2 (0.9-1.6) Urine Color Urine Appearance Urine pH (5.0-8.0) Ur Specific [place] (1.001-1.035) Urine Protein (NEGATIVE) mg/dL Urine Glucose (UA) (NEGATIVE) mg/dL Urine Ketones (NEGATIVE) mg/dL Urine Occult Blood (NEGATIVE) Urine Nitrite (NEGATIVE) Urine Bilirubin (NEGATIVE) Urine Urobilinogen (<2.0) EU/dL Ur Leukocyte Esterase (NEGATIVE) Urine RBC (0-2/HPF) Urine WBC (0-5/HPF) Ur Epithelial Cells (NONE-FEW) Urine Bacteria (NEGATIVE) Urine Mucus (NONE-MOD) Urine HCG, Qual (NEGATIVE) Salicylates 0.2 (0-20) mg/dL Urine Opiates Screen (NEGATIVE) Ur Oxycodone Screen (NEGATIVE) Urine Methadone Screen (NEGATIVE) Acetaminophen <2.0 ug/mL Ur Barbiturates Screen (NEGATIVE) Ur Phencyclidine Scrn (NEGATIVE) Ur Amphetamine Screen (NEGATIVE) U Methamphetamines Scrn (NEGATIVE) U Benzodiazepines Scrn (NEGATIVE) U Cocaine Metab Screen (NEGATIVE) U Marijuana (THC) Screen (NEGATIVE) Ethyl Alcohol < 3.0 mg/dL SARS-CoV-2 RNA (SHARON) NEGATIVE (NEGATIVE) Result Diagrams: 03/27/21 05:10 03/27/21 05:10 Sepsis Event Note - Evaluation Sepsis Screening Result: No Definite Risk - Focused Exam Vital Signs: Vital Signs Temp Pulse Resp BP Pulse Ox 03/26/21 00:00 75 16 93/46 L 93 L 03/25/21 23:30 69 16 90/44 L 95 03/25/21 23:00 73 16 100/50 L 97 03/25/21 22:30 70 18 92/47 L 98 03/25/21 22:00 62 16 95/51 L 97 03/25/21 21:30 63 16 97/51 L 98 03/25/21 21:00 58 L 16 95/50 L 99 03/25/21 20:30 62 16 102/54 L 100 03/25/21 20:00 64 16 92/60 98 03/25/21 19:30 71 16 97/55 L 98 03/25/21 19:20 71 16 97/55 L 97 03/25/21 18:50 72 18 99/63 98 03/25/21 18:20 77 18 91/57 L 100 03/25/21 17:50 36.4 C 75 16 104/59 L 98 Problem List Initiated/Reviewed/Updated: Yes Orders Last 24hrs: Active Orders 24 hr Category Date Time Status Admission Status [Patient Status] [ADT] Stat ADT 03/25/21 22:53 Active Antiembolic Devices [RC] PER UNIT ROUTINE Care 03/26/21 00:51 Ordered EKG Documentation Completion [RC] Q2H Care 03/26/21 00:00 Active Oxygen Therapy [RC] PRN Care 03/26/21 00:50 Ordered VTE/DVT Education [RC] PER UNIT ROUTINE Care 03/26/21 00:50 Ordered Vital Signs [RC] Q4H Care 03/26/21 00:50 Ordered Regular Diet [DIET] Diet 03/26/21 Breakfast Ordered CBC WITH AUTO DIFF [HEME] AM Lab 03/26/21 05:11 Ordered COMPREHENSIVE METABOLIC PN,CMP [CHEM] AM Lab 03/26/21 05:11 Ordered Magnesium Sulfate/Water [Magnesium Sulfate in Water 4 Med 03/25/21 21:26 Active GM/100 ML] 4 gm Premix Bag 1 bag IV ONETIME Sequential Compression Device [OM.PC] Per Unit Routine Oth 03/26/21 00:51 Ordered Medication Orders Magnesium Sulfate 4 gm/ Premix 100 mls @ 25 mls/hr IV ONETIME ONE Stop: 03/26/21 01:25 Last Admin: 03/25/21 22:07 Dose: 25 mls/hr Documented by: CAREMARS Assessment/Plan Comment:: 21 yo female admitted for suicide ideation with trazadone overdose. Patient will be monitor on telemetry with EKGs every two hours. We will place on suicide precautions.
[2021-03-26 06:16] LABS: BLOOD UREA NITROGEN,BUN 6 mg/dL (7.0-18.0); CARBON DIOXIDE,CO2 23.7 mmol/L (21.0-32.0); CHLORIDE,CL 110 mmol/L (98-107); GLUCOSE RANDOM 77 mg/dL (74-106); POTASSIUM,K 4.1 mmol/L (3.5-5.1); SODIUM,NA 141 mmol/L (136-145)
--- NOTE | 2021-03-26 14:05 | PCM.PN ---
- General Info Date of Service: 03/26/21 Subjective Update: Patient states she feels extremely tired this morning. Patient states nothing is going her way and she does not know what to do. Patient states she has been compliant with all her home psychiatric medications. Denies chest pain, shortness of breath, fever, chills, nausea, vomiting. - Review of Systems General: Denies: Fever, Chills Pulmonary: Denies: Shortness of Breath, Cough Cardiovascular: Denies: Chest Pain, Edema Gastrointestinal: Denies: Abdominal Pain, Constipation, Nausea, Vomiting Neurological: Denies: Confusion, Dizziness, Headache Psychiatric: Reports: Depression, Anxiety, Suicidal Ideation - Patient Data Vitals - Most Recent: Last Vital Signs Temp 98.1 F 03/26/21 12:00 Pulse 75 03/26/21 00:00 Resp 23 H 03/26/21 13:00 BP 113/78 03/26/21 13:00 Pulse Ox 100 03/26/21 13:00 Weight - Most Recent: 183 lb 3.2 oz I&O - Last 24 Hours: Intake & Output 03/25/21 03/26/21 03/26/21 22:59 06:59 14:59 Intake Total 300 Output Total 400 Balance -100 Lab Results Last 24 Hours: Laboratory Results - last 24 hr 03/25/21 03/25/21 03/25/21 Range/Units 17:57 18:05 18:05 WBC (4.0-11.0) K/uL RBC (4.30-5.90) M/uL Hgb (12.0-16.0) g/dL Hct (36.0-46.0) % MCV (80.0-98.0) fL MCH (27.0-32.0) pg MCHC (31.0-37.0) g/dL RDW Std Deviation (28.0-62.0) fl RDW Coeff of Emerson (11.0-15.0) % Plt Count (150-400) K/uL MPV (7.40-12.00) fL Neut % (Auto) (48.0-80.0) % Lymph % (Auto) (16.0-40.0) % [place] % (Auto) (0.0-15.0) % Eos % (Auto) (0.0-7.0) % Baso % (Auto) (0.0-1.5) % Neut # (Auto) (1.4-5.7) K/uL Lymph # (Auto) (0.6-2.4) K/uL [place] # (Auto) (0.0-0.8) K/uL Eos # (Auto) (0.0-0.7) K/uL Baso # (Auto) (0.0-0.1) K/uL Nucleated RBC % /100WBC Nucleated RBCs # K/uL Sodium (136-145) mmol/L Potassium (3.5-5.1) mmol/L Chloride (98-107) mmol/L Carbon Dioxide (21.0-32.0) mmol/L BUN (7.0-18.0) mg/dL Creatinine (0.6-1.0) mg/dL Est Cr Clr Drug Dosing mL/min Estimated GFR (MDRD) ml/min Glucose (74-106) mg/dL Calcium (8.5-10.1) mg/dL Magnesium (1.8-2.4) mg/dL Total Bilirubin (0.2-1.0) mg/dL AST (15-37) IU/L ALT (14-63) IU/L Alkaline Phosphatase (46-116) U/L Total Protein (6.4-8.2) g/dL Albumin (3.4-5.0) g/dL Globulin (2.6-4.0) g/dL Albumin/Globulin Ratio (0.9-1.6) Urine Color YELLOW Urine Appearance HAZY Urine pH 6.0 (5.0-8.0) Ur Specific [place] 1.020 (1.001-1.035) Urine Protein NEGATIVE (NEGATIVE) mg/dL Urine Glucose (UA) NEGATIVE (NEGATIVE) mg/dL Urine Ketones NEGATIVE (NEGATIVE) mg/dL Urine Occult Blood NEGATIVE (NEGATIVE) Urine Nitrite NEGATIVE (NEGATIVE) Urine Bilirubin NEGATIVE (NEGATIVE) Urine Urobilinogen 0.2 (<2.0) EU/dL Ur Leukocyte Esterase MODERATE H (NEGATIVE) Urine RBC 0-2 (0-2/HPF) Urine WBC 5-8 (0-5/HPF) Ur Epithelial Cells FEW (NONE-FEW) Urine Bacteria 1+ H (NEGATIVE) Urine Mucus LIGHT (NONE-MOD) Urine HCG, Qual NEGATIVE (NEGATIVE) Salicylates (0-20) mg/dL Urine Opiates Screen NEGATIVE (NEGATIVE) Ur Oxycodone Screen NEGATIVE (NEGATIVE) Urine Methadone Screen NEGATIVE (NEGATIVE) Acetaminophen ug/mL Ur Barbiturates Screen NEGATIVE (NEGATIVE) Ur Phencyclidine Scrn NEGATIVE (NEGATIVE) Ur Amphetamine Screen NEGATIVE (NEGATIVE) U Methamphetamines Scrn NEGATIVE (NEGATIVE) U Benzodiazepines Scrn NEGATIVE (NEGATIVE) U Cocaine Metab Screen NEGATIVE (NEGATIVE) U Marijuana (THC) Screen NEGATIVE (NEGATIVE) Ethyl Alcohol mg/dL SARS-CoV-2 RNA (SHARON) (NEGATIVE) 03/25/21 03/25/21 03/25/21 Range/Units 18:14 18:14 22:44 WBC 8.28 (4.0-11.0) K/uL RBC 4.34 (4.30-5.90) M/uL Hgb 11.7 L (12.0-16.0) g/dL Hct 36.0 (36.0-46.0) % MCV 82.9 (80.0-98.0) fL MCH 27.0 (27.0-32.0) pg MCHC 32.5 (31.0-37.0) g/dL RDW Std Deviation 46.2 (28.0-62.0) fl RDW Coeff of Emerson 15 (11.0-15.0) % Plt Count 355 (150-400) K/uL MPV 9.60 (7.40-12.00) fL Neut % (Auto) 55.1 (48.0-80.0) % Lymph % (Auto) 32.7 (16.0-40.0) % [place] % (Auto) 11.5 (0.0-15.0) % Eos % (Auto) 0.5 (0.0-7.0) % Baso % (Auto) 0.2 (0.0-1.5) % Neut # (Auto) 4.6 (1.4-5.7) K/uL Lymph # (Auto) 2.7 H (0.6-2.4) K/uL [place] # (Auto) 1.0 H (0.0-0.8) K/uL Eos # (Auto) 0.0 (0.0-0.7) K/uL Baso # (Auto) 0.0 (0.0-0.1) K/uL Nucleated RBC % 0.0 /100WBC Nucleated RBCs # 0 K/uL Sodium 140 (136-145) mmol/L Potassium 3.5 (3.5-5.1) mmol/L Chloride 105 (98-107) mmol/L Carbon Dioxide 27.0 (21.0-32.0) mmol/L BUN 11 (7.0-18.0) mg/dL Creatinine 0.9 (0.6-1.0) mg/dL Est Cr Clr Drug Dosing 75.24 mL/min Estimated GFR (MDRD) > 60.0 ml/min Glucose 97 (74-106) mg/dL Calcium 8.7 (8.5-10.1) mg/dL Magnesium 2.0 (1.8-2.4) mg/dL Total Bilirubin 0.4 (0.2-1.0) mg/dL AST 19 (15-37) IU/L ALT 25 (14-63) IU/L Alkaline Phosphatase 76 (46-116) U/L Total Protein 7.3 (6.4-8.2) g/dL Albumin 4.0 (3.4-5.0) g/dL Globulin 3.3 (2.6-4.0) g/dL Albumin/Globulin Ratio 1.2 (0.9-1.6) Urine Color Urine Appearance Urine pH (5.0-8.0) Ur Specific [place] (1.001-1.035) Urine Protein (NEGATIVE) mg/dL Urine Glucose (UA) (NEGATIVE) mg/dL Urine Ketones (NEGATIVE) mg/dL Urine Occult Blood (NEGATIVE) Urine Nitrite (NEGATIVE) Urine Bilirubin (NEGATIVE) Urine Urobilinogen (<2.0) EU/dL Ur Leukocyte Esterase (NEGATIVE) Urine RBC (0-2/HPF) Urine WBC (0-5/HPF) Ur Epithelial Cells (NONE-FEW) Urine Bacteria (NEGATIVE) Urine Mucus (NONE-MOD) Urine HCG, Qual (NEGATIVE) Salicylates 0.2 (0-20) mg/dL Urine Opiates Screen (NEGATIVE) Ur Oxycodone Screen (NEGATIVE) Urine Methadone Screen (NEGATIVE) Acetaminophen <2.0 ug/mL Ur Barbiturates Screen (NEGATIVE) Ur Phencyclidine Scrn (NEGATIVE) Ur Amphetamine Screen (NEGATIVE) U Methamphetamines Scrn (NEGATIVE) U Benzodiazepines Scrn (NEGATIVE) U Cocaine Metab Screen (NEGATIVE) U Marijuana (THC) Screen (NEGATIVE) Ethyl Alcohol < 3.0 mg/dL SARS-CoV-2 RNA (SHARON) NEGATIVE (NEGATIVE) 03/26/21 03/26/21 Range/Units 05:05 05:05 WBC 8.29 (4.0-11.0) K/uL RBC 4.07 L (4.30-5.90) M/uL Hgb 10.9 L (12.0-16.0) g/dL Hct 34.1 L (36.0-46.0) % MCV 83.8 (80.0-98.0) fL MCH 26.8 L (27.0-32.0) pg MCHC 32.0 (31.0-37.0) g/dL RDW Std Deviation 47.1 (28.0-62.0) fl RDW Coeff of Emerson 15 (11.0-15.0) % Plt Count 340 (150-400) K/uL MPV 9.90 (7.40-12.00) fL Neut % (Auto) 50.3 (48.0-80.0) % Lymph % (Auto) 39.7 (16.0-40.0) % [place] % (Auto) 9.0 (0.0-15.0) % Eos % (Auto) 0.8 (0.0-7.0) % Baso % (Auto) 0.2 (0.0-1.5) % Neut # (Auto) 4.2 (1.4-5.7) K/uL Lymph # (Auto) 3.3 H (0.6-2.4) K/uL [place] # (Auto) 0.8 (0.0-0.8) K/uL Eos # (Auto) 0.1 (0.0-0.7) K/uL Baso # (Auto) 0.0 (0.0-0.1) K/uL Nucleated RBC % 0.0 /100WBC Nucleated RBCs # 0 K/uL Sodium 141 (136-145) mmol/L Potassium 4.1 (3.5-5.1) mmol/L Chloride 110 H (98-107) mmol/L Carbon Dioxide 23.7 (21.0-32.0) mmol/L BUN 6 L (7.0-18.0) mg/dL Creatinine 0.8 (0.6-1.0) mg/dL Est Cr Clr Drug Dosing 84.65 mL/min Estimated GFR (MDRD) > 60.0 ml/min Glucose 77 (74-106) mg/dL Calcium 8.0 L (8.5-10.1) mg/dL Magnesium (1.8-2.4) mg/dL Total Bilirubin 0.4 (0.2-1.0) mg/dL AST 19 (15-37) IU/L ALT 22 (14-63) IU/L Alkaline Phosphatase 69 (46-116) U/L Total Protein 6.2 L (6.4-8.2) g/dL Albumin 3.3 L (3.4-5.0) g/dL Globulin 2.9 (2.6-4.0) g/dL Albumin/Globulin Ratio 1.1 (0.9-1.6) Urine Color Urine Appearance Urine pH (5.0-8.0) Ur Specific [place] (1.001-1.035) Urine Protein (NEGATIVE) mg/dL Urine Glucose (UA) (NEGATIVE) mg/dL Urine Ketones (NEGATIVE) mg/dL Urine Occult Blood (NEGATIVE) Urine Nitrite (NEGATIVE) Urine Bilirubin (NEGATIVE) Urine Urobilinogen (<2.0) EU/dL Ur Leukocyte Esterase (NEGATIVE) Urine RBC (0-2/HPF) Urine WBC (0-5/HPF) Ur Epithelial Cells (NONE-FEW) Urine Bacteria (NEGATIVE) Urine Mucus (NONE-MOD) Urine HCG, Qual (NEGATIVE) Salicylates (0-20) mg/dL Urine Opiates Screen (NEGATIVE) Ur Oxycodone Screen (NEGATIVE) Urine Methadone Screen (NEGATIVE) Acetaminophen ug/mL Ur Barbiturates Screen (NEGATIVE) Ur Phencyclidine Scrn (NEGATIVE) Ur Amphetamine Screen (NEGATIVE) U Methamphetamines Scrn (NEGATIVE) U Benzodiazepines Scrn (NEGATIVE) U Cocaine Metab Screen (NEGATIVE) U Marijuana (THC) Screen (NEGATIVE) Ethyl Alcohol mg/dL SARS-CoV-2 RNA (SHARON) (NEGATIVE) Med Orders - Current: Current Medications Discontinued Medications Sodium Chloride (Normal Saline) 1,000 mls @ 999 mls/hr IV STAT ONE Stop: 03/25/21 22:23 Last Admin: 03/25/21 22:07 Dose: 999 mls/hr Documented by: Magnesium Sulfate 4 gm/ Premix 100 mls @ 25 mls/hr IV ONETIME ONE Stop: 03/26/21 01:25 Last Admin: 03/25/21 22:07 Dose: 25 mls/hr Documented by: Sodium Chloride (Normal Saline) 1,000 mls @ 999 mls/hr IV .Bolus ONE Stop: 03/25/21 23:38 Last Admin: 03/25/21 22:42 Dose: 999 mls/hr Documented by: Potassium Chloride (Potassium Chloride 20 Meq Tab.Er) 40 meq PO ONETIME ONE Stop: 03/25/21 21:27 Last Admin: 03/25/21 22:08 Dose: 40 meq Documented by: Trimethoprim/Sulfamethoxazole (Sulfamethoxazole/Trimethoprim 800-160 Mg Tab) 1 tab PO ONETIME ONE Stop: 03/25/21 22:02 Last Admin: 03/25/21 22:32 Dose: 1 tab Documented by: - Exam General: Alert HEENT: Pupils Reactive Lungs: Clear to Auscultation, Normal Respiratory Effort Cardiovascular: Regular Rate, Regular Rhythm GI/Abdominal Exam: Soft, Non-Tender Extremities: No Pedal Edema Psy/Mental Status: Alert, Depressed, Suicidal Ideation - Patient Data Lab Results Last 24 hrs: Laboratory Results - last 24 hr 03/25/21 03/25/21 03/25/21 Range/Units 17:57 18:05 18:05 WBC (4.0-11.0) K/uL RBC (4.30-5.90) M/uL Hgb (12.0-16.0) g/dL Hct (36.0-46.0) % MCV (80.0-98.0) fL MCH (27.0-32.0) pg MCHC (31.0-37.0) g/dL RDW Std Deviation (28.0-62.0) fl RDW Coeff of Emerson (11.0-15.0) % Plt Count (150-400) K/uL MPV (7.40-12.00) fL Neut % (Auto) (48.0-80.0) % Lymph % (Auto) (16.0-40.0) % [place] % (Auto) (0.0-15.0) % Eos % (Auto) (0.0-7.0) % Baso % (Auto) (0.0-1.5) % Neut # (Auto) (1.4-5.7) K/uL Lymph # (Auto) (0.6-2.4) K/uL [place] # (Auto) (0.0-0.8) K/uL Eos # (Auto) (0.0-0.7) K/uL Baso # (Auto) (0.0-0.1) K/uL Nucleated RBC % /100WBC Nucleated RBCs # K/uL Sodium (136-145) mmol/L Potassium (3.5-5.1) mmol/L Chloride (98-107) mmol/L Carbon Dioxide (21.0-32.0) mmol/L BUN (7.0-18.0) mg/dL Creatinine (0.6-1.0) mg/dL Est Cr Clr Drug Dosing mL/min Estimated GFR (MDRD) ml/min Glucose (74-106) mg/dL Calcium (8.5-10.1) mg/dL Magnesium (1.8-2.4) mg/dL Total Bilirubin (0.2-1.0) mg/dL AST (15-37) IU/L ALT (14-63) IU/L Alkaline Phosphatase (46-116) U/L Total Protein (6.4-8.2) g/dL Albumin (3.4-5.0) g/dL Globulin (2.6-4.0) g/dL Albumin/Globulin Ratio (0.9-1.6) Urine Color YELLOW Urine Appearance HAZY Urine pH 6.0 (5.0-8.0) Ur Specific [place] 1.020 (1.001-1.035) Urine Protein NEGATIVE (NEGATIVE) mg/dL Urine Glucose (UA) NEGATIVE (NEGATIVE) mg/dL Urine Ketones NEGATIVE (NEGATIVE) mg/dL Urine Occult Blood NEGATIVE (NEGATIVE) Urine Nitrite NEGATIVE (NEGATIVE) Urine Bilirubin NEGATIVE (NEGATIVE) Urine Urobilinogen 0.2 (<2.0) EU/dL Ur Leukocyte Esterase MODERATE H (NEGATIVE) Urine RBC 0-2 (0-2/HPF) Urine WBC 5-8 (0-5/HPF) Ur Epithelial Cells FEW (NONE-FEW) Urine Bacteria 1+ H (NEGATIVE) Urine Mucus LIGHT (NONE-MOD) Urine HCG, Qual NEGATIVE (NEGATIVE) Salicylates (0-20) mg/dL Urine Opiates Screen NEGATIVE (NEGATIVE) Ur Oxycodone Screen NEGATIVE (NEGATIVE) Urine Methadone Screen NEGATIVE (NEGATIVE) Acetaminophen ug/mL Ur Barbiturates Screen NEGATIVE (NEGATIVE) Ur Phencyclidine Scrn NEGATIVE (NEGATIVE) Ur Amphetamine Screen NEGATIVE (NEGATIVE) U Methamphetamines Scrn NEGATIVE (NEGATIVE) U Benzodiazepines Scrn NEGATIVE (NEGATIVE) U Cocaine Metab Screen NEGATIVE (NEGATIVE) U Marijuana (THC) Screen NEGATIVE (NEGATIVE) Ethyl Alcohol mg/dL SARS-CoV-2 RNA (SHARON) (NEGATIVE) 03/25/21 03/25/21 03/25/21 Range/Units 18:14 18:14 22:44 WBC 8.28 (4.0-11.0) K/uL RBC 4.34 (4.30-5.90) M/uL Hgb 11.7 L (12.0-16.0) g/dL Hct 36.0 (36.0-46.0) % MCV 82.9 (80.0-98.0) fL MCH 27.0 (27.0-32.0) pg MCHC 32.5 (31.0-37.0) g/dL RDW Std Deviation 46.2 (28.0-62.0) fl RDW Coeff of Emerson 15 (11.0-15.0) % Plt Count 355 (150-400) K/uL MPV 9.60 (7.40-12.00) fL Neut % (Auto) 55.1 (48.0-80.0) % Lymph % (Auto) 32.7 (16.0-40.0) % [place] % (Auto) 11.5 (0.0-15.0) % Eos % (Auto) 0.5 (0.0-7.0) % Baso % (Auto) 0.2 (0.0-1.5) % Neut # (Auto) 4.6 (1.4-5.7) K/uL Lymph # (Auto) 2.7 H (0.6-2.4) K/uL [place] # (Auto) 1.0 H (0.0-0.8) K/uL Eos # (Auto) 0.0 (0.0-0.7) K/uL Baso # (Auto) 0.0 (0.0-0.1) K/uL Nucleated RBC % 0.0 /100WBC Nucleated RBCs # 0 K/uL Sodium 140 (136-145) mmol/L Potassium 3.5 (3.5-5.1) mmol/L Chloride 105 (98-107) mmol/L Carbon Dioxide 27.0 (21.0-32.0) mmol/L BUN 11 (7.0-18.0) mg/dL Creatinine 0.9 (0.6-1.0) mg/dL Est Cr Clr Drug Dosing 75.24 mL/min Estimated GFR (MDRD) > 60.0 ml/min Glucose 97 (74-106) mg/dL Calcium 8.7 (8.5-10.1) mg/dL Magnesium 2.0 (1.8-2.4) mg/dL Total Bilirubin 0.4 (0.2-1.0) mg/dL AST 19 (15-37) IU/L ALT 25 (14-63) IU/L Alkaline Phosphatase 76 (46-116) U/L Total Protein 7.3 (6.4-8.2) g/dL Albumin 4.0 (3.4-5.0) g/dL Globulin 3.3 (2.6-4.0) g/dL Albumin/Globulin Ratio 1.2 (0.9-1.6) Urine Color Urine Appearance Urine pH (5.0-8.0) Ur Specific [place] (1.001-1.035) Urine Protein (NEGATIVE) mg/dL Urine Glucose (UA) (NEGATIVE) mg/dL Urine Ketones (NEGATIVE) mg/dL Urine Occult Blood (NEGATIVE) Urine Nitrite (NEGATIVE) Urine Bilirubin (NEGATIVE) Urine Urobilinogen (<2.0) EU/dL Ur Leukocyte Esterase (NEGATIVE) Urine RBC (0-2/HPF) Urine WBC (0-5/HPF) Ur Epithelial Cells (NONE-FEW) Urine Bacteria (NEGATIVE) Urine Mucus (NONE-MOD) Urine HCG, Qual (NEGATIVE) Salicylates 0.2 (0-20) mg/dL Urine Opiates Screen (NEGATIVE) Ur Oxycodone Screen (NEGATIVE) Urine Methadone Screen (NEGATIVE) Acetaminophen <2.0 ug/mL Ur Barbiturates Screen (NEGATIVE) Ur Phencyclidine Scrn (NEGATIVE) Ur Amphetamine Screen (NEGATIVE) U Methamphetamines Scrn (NEGATIVE) U Benzodiazepines Scrn (NEGATIVE) U Cocaine Metab Screen (NEGATIVE) U Marijuana (THC) Screen (NEGATIVE) Ethyl Alcohol < 3.0 mg/dL SARS-CoV-2 RNA (SHARON) NEGATIVE (NEGATIVE) 03/26/21 03/26/21 Range/Units 05:05 05:05 WBC 8.29 (4.0-11.0) K/uL RBC 4.07 L (4.30-5.90) M/uL Hgb 10.9 L (12.0-16.0) g/dL Hct 34.1 L (36.0-46.0) % MCV 83.8 (80.0-98.0) fL MCH 26.8 L (27.0-32.0) pg MCHC 32.0 (31.0-37.0) g/dL RDW Std Deviation 47.1 (28.0-62.0) fl RDW Coeff of [place] 15 (11.0-15.0) % Plt Count 340 (150-400) K/uL MPV 9.90 (7.40-12.00) fL Neut % (Auto) 50.3 (48.0-80.0) % Lymph % (Auto) 39.7 (16.0-40.0) % [place] % (Auto) 9.0 (0.0-15.0) % Eos % (Auto) 0.8 (0.0-7.0) % Baso % (Auto) 0.2 (0.0-1.5) % Neut # (Auto) 4.2 (1.4-5.7) K/uL Lymph # (Auto) 3.3 H (0.6-2.4) K/uL [place] # (Auto) 0.8 (0.0-0.8) K/uL Eos # (Auto) 0.1 (0.0-0.7) K/uL Baso # (Auto) 0.0 (0.0-0.1) K/uL Nucleated RBC % 0.0 /100WBC Nucleated RBCs # 0 K/uL Sodium 141 (136-145) mmol/L Potassium 4.1 (3.5-5.1) mmol/L Chloride 110 H (98-107) mmol/L Carbon Dioxide 23.7 (21.0-32.0) mmol/L BUN 6 L (7.0-18.0) mg/dL Creatinine 0.8 (0.6-1.0) mg/dL Est Cr Clr Drug Dosing 84.65 mL/min Estimated GFR (MDRD) > 60.0 ml/min Glucose 77 (74-106) mg/dL Calcium 8.0 L (8.5-10.1) mg/dL Magnesium (1.8-2.4) mg/dL Total Bilirubin 0.4 (0.2-1.0) mg/dL AST 19 (15-37) IU/L ALT 22 (14-63) IU/L Alkaline Phosphatase 69 (46-116) U/L Total Protein 6.2 L (6.4-8.2) g/dL Albumin 3.3 L (3.4-5.0) g/dL Globulin 2.9 (2.6-4.0) g/dL Albumin/Globulin Ratio 1.1 (0.9-1.6) Urine Color Urine Appearance Urine pH (5.0-8.0) Ur Specific [place] (1.001-1.035) Urine Protein (NEGATIVE) mg/dL Urine Glucose (UA) (NEGATIVE) mg/dL Urine Ketones (NEGATIVE) mg/dL Urine Occult Blood (NEGATIVE) Urine Nitrite (NEGATIVE) Urine Bilirubin (NEGATIVE) Urine Urobilinogen (<2.0) EU/dL Ur Leukocyte Esterase (NEGATIVE) Urine RBC (0-2/HPF) Urine WBC (0-5/HPF) Ur Epithelial Cells (NONE-FEW) Urine Bacteria (NEGATIVE) Urine Mucus (NONE-MOD) Urine HCG, Qual (NEGATIVE) Salicylates (0-20) mg/dL Urine Opiates Screen (NEGATIVE) Ur Oxycodone Screen (NEGATIVE) Urine Methadone Screen (NEGATIVE) Acetaminophen ug/mL Ur Barbiturates Screen (NEGATIVE) Ur Phencyclidine Scrn (NEGATIVE) Ur Amphetamine Screen (NEGATIVE) U Methamphetamines Scrn (NEGATIVE) U Benzodiazepines Scrn (NEGATIVE) U Cocaine Metab Screen (NEGATIVE) U Marijuana (THC) Screen (NEGATIVE) Ethyl Alcohol mg/dL SARS-CoV-2 RNA (SHARON) (NEGATIVE) Result Diagrams: 03/26/21 05:05 03/26/21 05:05 Sepsis Event Note - Evaluation Sepsis Screening Result: No Definite Risk - Focused Exam Vital Signs: Vital Signs Temp Resp BP Pulse Ox 03/26/21 13:00 23 H 113/78 100 03/26/21 12:00 98.1 F 20 112/53 L 100 03/26/21 11:00 22 H 107/50 L 100 03/26/21 10:00 18 110/61 100 03/26/21 09:00 19 110/54 L 100 03/26/21 08:00 98.2 F 20 92/47 L 100 03/26/21 06:55 15 100/46 L 100 03/26/21 06:00 15 101/46 L 100 03/26/21 05:11 99/45 L 03/26/21 05:00 18 92/47 L 100 03/26/21 04:00 99 F 15 94/44 L 100 03/26/21 03:00 17 90/43 L 100 - Problem List & Annotations (1) Intentional drug overdose SNOMED Code(s): 96408180 Code(s): T50.902A - POISONING BY UNSP DRUG/MEDS/BIOL SUBST, SELF-HARM, INIT Status: Acute Current Visit: Yes Qualifiers: Encounter type: initial encounter Qualified Code(s): T50.902A - Poisoning by unspecified drugs, medicaments and biological substances, intentional self- harm, initial encounter (2) Suicidal ideation SNOMED Code(s): 6343221 Code(s): R45.851 - SUICIDAL IDEATIONS Status: Acute Current Visit: Yes (3) Suicide attempt SNOMED Code(s): 52460603 Code(s): T14.91XA - SUICIDE ATTEMPT, INITIAL ENCOUNTER Status: Acute Current Visit: Yes - Problem List Review Problem List Initiated/Reviewed/Updated: Yes - My Orders Last 24 Hours: My Active Orders 03/26/21 11:30 Communication Order [RC] PER UNIT ROUTINE - Plan Plan:: Suicide ideation/attempt- Attempt with trazodone overdose. Cardiac telemetry, Patient was being monitored with Q2HR EKGs to monitor QTc prolongation. Last reported was 489. Patient cleared by poison control will stop serial EKG's. Placed on suicide precautions. Patient to be transferred to psychiatric facility tomorrow.
[2021-03-27 06:20] LABS: BLOOD UREA NITROGEN,BUN 9 mg/dL (7.0-18.0); CARBON DIOXIDE,CO2 24.8 mmol/L (21.0-32.0); CHLORIDE,CL 106 mmol/L (98-107); GLUCOSE RANDOM 84 mg/dL (74-106); POTASSIUM,K 3.9 mmol/L (3.5-5.1); SODIUM,NA 139 mmol/L (136-145)
--- NOTE | 2021-03-27 11:27 | PCM.DCSUM1 ---
Discharge Summary - Hospital Course Free Text/Narrative:: 21 yo female with pmh of depression presents to the ED for suicidal attempt with ingestion of (20) 150mg tablets of trazadone, per records. Patient did state that she was trying to kill herself. In the ED poison controlled was called and recommended patient be admitted for monitoring of QTC and blood pressure. On admission patient denied fever, chills, nausea, vomiting, abdominal pain, dysuria, hematuria, suprapubic pain. Patient stated that she was very tired and just wanted to sleep. Patient also states that she has recently been feeling very sad and depressed. Of note patient had a previous admission to the ER on 03-13-21 for suicidal ideation with a plan to cut her throat with a knife. At that time patient was transferred to a psychiatric facility for treatment. Patient was admitted to the ICU and monitored for hypotension and prolonged QTC. Patient's QTC upon discharge was within normal limits and patient was hemodynamically stable. Patient was transferred to [facility] in [place] for psychiatric evaluation and further treatment. Patient had 1+ Bacteria noted on UA, patient denied dysuria, hematuria, suprapubic pain, no fever or chills noted. Asymptomatic bacteriuria, antibiotics not needed at this time. Patient to discuss any medical concerns with her admitting medical team at [facility] in [place]. - Discharge Data Discharge Date: 03/27/21 Discharge Disposition: DC/Tfer to Acute Hospital 02 Condition: Stable - Referral to Home Health Primary Care Physician: PCP None - Discharge Diagnosis/Problem(s) (1) Intentional drug overdose SNOMED Code(s): 22878059 ICD Code: T50.902A - POISONING BY UNSP DRUG/MEDS/BIOL SUBST, SELF-HARM, INIT Status: Acute Qualifiers: Encounter type: initial encounter Qualified Code(s): T50.902A - Poisoning by unspecified drugs, medicaments and biological substances, intentional self- harm, initial encounter (2) Suicidal ideation SNOMED Code(s): 2850330 ICD Code: R45.851 - SUICIDAL IDEATIONS Status: Acute (3) Suicide attempt SNOMED Code(s): 55606540 ICD Code: T14.91XA - SUICIDE ATTEMPT, INITIAL ENCOUNTER Status: Acute - Patient Instructions Diet: Usual Diet as Tolerated Activity: As Tolerated Showering/Bathing: May Shower Notify Provider of: Fever, Nausea and/or Vomiting Other/Special Instructions: PATIENT TO BE DISCHARGED TO [facility] IN [place]. ACCEPTING PSYCHIATRY TEAM WILL REVIEW ALL MEDICAL CONDITIONS AND MEDICATIONS WITH PATIENT UPON ADMISSION. PATIENT TO NOTIFY ADMITTING TEAM OF ANY CONCERNS - Discharge Plan *PRESCRIPTION DRUG MONITORING PROGRAM REVIEWED*: Not Applicable *COPY OF PRESCRIPTION DRUG MONITORING REPORT IN PATIENT [place]: Not Applicable Home Medications: Home Meds Cariprazine HCl [Vraylar] 03/13/21 [History] Venlafaxine [Effexor XR] 03/13/21 [History] hydrOXYzine HCL [hydrOXYzine] 1 tab PO DAILY 03/13/21 [History] lamoTRIgine [LaMICtal] 03/13/21 [History] metFORMIN [Glucophage XR] 03/13/21 [History] norgestimate-ethinyl estradioL [Sprintec 28 Day Tablet] 1 tab PO DAILY 03/13/21 [History] Forms: ED Department Discharge Referrals: PCP,None [Primary Care Provider] - - Discharge Summary/Plan Comment DC Time >30 min.: Yes - General Info Date of Service: 03/27/21 - Review of Systems General: Denies: Fever, Chills Pulmonary: Denies: Cough Cardiovascular: Denies: Chest Pain, Palpitations, Orthopnea Gastrointestinal: Denies: Abdominal Pain, Constipation, Nausea, Vomiting Neurological: Denies: Confusion, Dizziness, Headache Psychiatric: Reports: Depression - Patient Data Vitals - Most Recent: Last Vital Signs Temp 98.1 F 03/27/21 08:00 Pulse 87 03/27/21 10:30 Resp 20 03/27/21 10:30 BP 114/71 03/27/21 10:30 Pulse Ox 98 03/27/21 10:30 Weight - Most Recent: 187 lb 12.8 oz I&O - Last 24 hours: Intake & Output 03/26/21 03/27/21 03/27/21 22:59 06:59 14:59 Intake Total 1800 240 Output Total 2500 1500 Balance -700 -1260 Lab Results - Last 24 hrs: Laboratory Results - last 24 hr 03/27/21 03/27/21 Range/Units 05:10 05:10 WBC 9.32 (4.0-11.0) K/uL RBC 4.23 L (4.30-5.90) M/uL Hgb 11.4 L (12.0-16.0) g/dL Hct 35.8 L (36.0-46.0) % MCV 84.6 (80.0-98.0) fL MCH 27.0 (27.0-32.0) pg MCHC 31.8 (31.0-37.0) g/dL RDW Std Deviation 48.1 (28.0-62.0) fl RDW Coeff of Emerson 16 H (11.0-15.0) % Plt Count 347 (150-400) K/uL MPV 10.20 (7.40-12.00) fL Neut % (Auto) 43.9 L (48.0-80.0) % Lymph % (Auto) 44.2 H (16.0-40.0) % Dent % (Auto) 10.7 (0.0-15.0) % Eos % (Auto) 1.1 (0.0-7.0) % Baso % (Auto) 0.1 (0.0-1.5) % Neut # (Auto) 4.1 (1.4-5.7) K/uL Lymph # (Auto) 4.1 H (0.6-2.4) K/uL Dent # (Auto) 1.0 H (0.0-0.8) K/uL Eos # (Auto) 0.1 (0.0-0.7) K/uL Baso # (Auto) 0.0 (0.0-0.1) K/uL Nucleated RBC % 0.0 /100WBC Nucleated RBCs # 0 K/uL Sodium 139 (136-145) mmol/L Potassium 3.9 (3.5-5.1) mmol/L Chloride 106 (98-107) mmol/L Carbon Dioxide 24.8 (21.0-32.0) mmol/L BUN 9 (7.0-18.0) mg/dL Creatinine 0.8 (0.6-1.0) mg/dL Est Cr Clr Drug Dosing 84.65 mL/min Estimated GFR (MDRD) > 60.0 ml/min Glucose 84 (74-106) mg/dL Calcium 8.7 (8.5-10.1) mg/dL Med Orders - Current: Current Medications Discontinued Medications Sodium Chloride (Normal Saline) 1,000 mls @ 999 mls/hr IV STAT ONE Stop: 03/25/21 22:23 Last Admin: 03/25/21 22:07 Dose: 999 mls/hr Documented by: Magnesium Sulfate 4 gm/ Premix 100 mls @ 25 mls/hr IV ONETIME ONE Stop: 03/26/21 01:25 Last Admin: 03/25/21 22:07 Dose: 25 mls/hr Documented by: Sodium Chloride (Normal Saline) 1,000 mls @ 999 mls/hr IV .Bolus ONE Stop: 03/25/21 23:38 Last Admin: 03/25/21 22:42 Dose: 999 mls/hr Documented by: Potassium Chloride (Potassium Chloride 20 Meq Tab.Er) 40 meq PO ONETIME ONE Stop: 03/25/21 21:27 Last Admin: 03/25/21 22:08 Dose: 40 meq Documented by: Trimethoprim/Sulfamethoxazole (Sulfamethoxazole/Trimethoprim 800-160 Mg Tab) 1 tab PO ONETIME ONE Stop: 03/25/21 22:02 Last Admin: 03/25/21 22:32 Dose: 1 tab Documented by: - Exam General: Reports: Alert, Lethargic Lungs: Reports: Clear to Auscultation, Normal Respiratory Effort Cardiovascular: Reports: Regular Rate, Regular Rhythm GI/Abdominal Exam: Soft, Non-Tender Extremities: No Pedal Edema Psy/Mental Status: Reports: Depressed, Suicidal Ideation
== END 2021-03-27 11:05 ==
LOC: MW.ED 17:47 → MW.ICU 22:53
PROVIDERS: ADMIT Internal Medicine; ATTEND Internal Medicine
DX: T43.212A Poisoning by selective serotonin and norepinephrine reuptake inhibitors, intentional self-harm, initial encounter (principal); F32.9 Major depressive disorder, single episode, unspecified; I95.9 Hypotension, unspecified; Z20.822 Contact with and (suspected) exposure to COVID-19; Z88.0 Allergy status to penicillin; Z79.899 Other long term (current) drug therapy
CPT/HCPCS: 36415; 80048; 80053; 80143; 80179; 80305; 80307; 81001; 81025; 83735; 85025; 87635; 93005; 96365; 99285; A9270; G0378; J3475; J7030; U0002

== ENCOUNTER 2021-04-02 20:09 | Emergency (ER) | payer SELFPAY ==
--- NOTE | 2021-04-02 20:40 | EDM.PDOC ---
ED HPI GENERAL MEDICAL PROBLEM - General Chief Complaint: Lower Extremity Injury/Pain Stated Complaint: LT KNEE INJURY Time Seen by Provider: 04/02/21 20:39 Source of Information: Reports: Patient History Limitations: Reports: No Limitations - History of Present Illness INITIAL COMMENTS - FREE TEXT/NARRATIVE: HISTORY AND PHYSICAL: History of present illness: Patient is a 21-year-old female who presents to the emergency room with complaints of anterior left knee pain after a fall. She states she was skating downhill when she twisted her leg resulting in patellar/knee pain. She is ambulatory into the emergency room and able to bear weight but states it is painful. Denies hitting her head or having any loss of consciousness. Denies any other extremity injury. Offers no systemic complaints. No concern for . Review of systems: As per history of present illness and below otherwise all systems reviewed and negative. Past medical history: As per history of present illness and as reviewed below otherwise noncontributory. Surgical history: As per history of present illness and as reviewed below otherwise noncontributory. Social history: See social history for further information Family history: As per history of present illness and as reviewed below otherwise noncontributory. Physical exam: General: Well developed and well nourished. Alert and orientated x 3. Nontoxic in appearance and in no acute distress. Vital signs are stable and have been reviewed by me. Nursing notes were reviewed. HEENT: Atraumatic, normocephalic, pupils equal and reactive bilaterally, negative for conjunctival pallor or scleral icterus, mucous membranes moist, TMs normal bilaterally, throat clear, neck supple, nontender, trachea midline. No drooling or trismus noted. No meningeal signs. No hot potato voice noted. Lungs: Clear to auscultation bilaterally. No wheezes, rales, or rhonchi. Chest nontender. Normal work of breathing, no accessory muscles used. Heart: S1S2, regular rate and rhythm without overt murmur, gallops, or rubs. No JVD. No peripheral edema Abdomen: Soft, nondistended, nontender. C-spine/Back: No pinpoint vertebral tenderness upon palpation. No crepitus, step-offs or obvious deformities. Patient is ambulatory into the emergency room without difficulty or deficit. Able to rock back on heels and walk on toes. Denies any urinary or fecal incontinence. Denies any numbness, tingling or saddle paresthesia. No concerns of serious infection, fracture or cord compression, or cauda equina syndrome. Deep tendon reflexes brisk bilaterally. Skin: Intact, warm, dry. No lesions or rashes noted. Hematologic: No petechiae or purpra. Mucosa appropriate color and normal nail bed color and refill. Extremities: She moves all extremities per self without difficulty or deficits, negative for cords or calf pain. No knee instability, negative drawer test. Strong pedal and pretibial pulses. Positive CMS. Neurovascular unremarkable. Neuro: Awake, alert, oriented. Cranial nerves II through XII unremarkable. Cerebellum unremarkable. Motor and sensory unremarkable throughout. Exam nonfocal. Psychiatric: Mood and affect are appropriate. Normal thought process. Answering questions appropriately. Notes: *This patient was seen and evaluated during the 2019 SARS-CoV-2 novel coronavirus pandemic period. Community viral transmission is ongoing at time of this encounter and the emergency department is operating under pandemic response procedures. Patient is a 21-year-old female who presents to the emergency room with complaints of left knee pain after a skating accident. She states she twisted her knee as she was falling while skating downhill. She is ambulatory without any knee instability. I will get an x-ray. X-ray shows no acute findings. Lawrence wrap and crutches for left knee sprain. To wear for comfort to be non-weightbearing over the next 2-3 days or until follows up with orthopedics. I have talked with the patient about today's findings, in addition to providing specific details for plan of care. Reassessment at the time of disposition demonstrates that the patient is in no acute distress. The patient is stable for discharge, counseling was provided and we discussed in great detail signs and symptoms that would prompt them to return to the Emergency Department. Medication, follow up and supportive care measures were reviewed and discussed. Voices understanding and is agreeable to plan of care. Denies any further questions or concerns at this time. Diagnostics: Knee x-ray Therapeutics: Crutches, lawrence wrap, [place] Prescription: None Impression: Knee sprain Plan: 1. You were evaluated today on an emergent basis. Your x-ray shows no fractures or dislocations. Rest, ice, elevate the extremity as able. Use Lawrence wrap and crutches to be nonweightbearing for the next 2 to 3 days. If you continue to have pain you should follow-up with an orthopedic provider as they may want to do further imaging such as an MRI for further evaluation of pain. 2. You can alternate Tylenol and ibuprofen as needed for pain and fever management. 3. If your symptoms should worsen, new symptoms develop or any of the signs and symptoms we discussed should arise please return to the emergency room or call 911 (if needed). Definitive disposition and diagnosis as appropriate pending reevaluation and review of above. - Related Data Allergies Allergy/AdvReac Type Severity Reaction Status Date / Time cefdinir [From Omnicef] Allergy Unknown Other Verified 04/02/21 20:41 Penicillins Allergy Unknown Other Verified 04/02/21 20:41 Home Meds: Home Meds Cariprazine HCl [Vraylar] 03/13/21 [History] Venlafaxine [Effexor XR] 03/13/21 [History] hydrOXYzine HCL [hydrOXYzine] 1 tab PO DAILY 03/13/21 [History] lamoTRIgine [LaMICtal] 03/13/21 [History] metFORMIN [Glucophage XR] 03/13/21 [History] norgestimate-ethinyl estradioL [Sprintec 28 Day Tablet] 1 tab PO DAILY 03/13/21 [History] Past Medical History - Past Health History Medical/Surgical History: Denies Medical/Surgical History Psychiatric History: Reports: Anxiety, Bipolar, Depression, PTSD, Suicide Attempt, Suicidal Ideation - Infectious Disease History Infectious Disease History: Reports: None Social & Family History - Family History Family Medical History: No Pertinent Family History - Caffeine Use Caffeine Use: Reports: Energy Drinks Review of Systems - Review of Systems Review Of Systems: Comprehensive ROS is negative, except as noted in HPI. ED EXAM, GENERAL - Physical Exam Exam: See Below (See dictation) Course - Vital Signs Last Recorded V/S: Last Vital Signs Temp 97.4 F 04/02/21 20:38 Pulse 88 04/02/21 20:38 Resp 20 04/02/21 20:38 BP 124/72 04/02/21 20:38 Pulse Ox 98 04/02/21 20:38 - Orders/Labs/Meds Orders: Active Orders 24 hr Category Date Time Status Acetaminophen/HYDROcodone [[place] 325-5 MG] Med 04/02/21 21:44 Once 1 tab PO ONETIME ONE DME for Discharge [COMM] Stat Oth 04/02/21 21:29 Ordered Departure - Departure Time of Disposition: 21:44 Disposition: Home, Self-Care 01 Clinical Impression: Knee sprain Qualifiers: Encounter type: initial encounter Involved ligament of knee: unspecified ligament Laterality: left Qualified Code(s): S83.92XA - Sprain of unspecified site of left knee, initial encounter - Discharge Information Instructions: Knee Sprain, Adult, [id number] Referrals: PCP,Not In Area [Primary Care Provider] - Forms: ED Department Discharge Additional Instructions: The following information is given to patients seen in the emergency department who are being discharged to home. This information is to outline your options for follow-up care. We provide all patients seen in our emergency department with a follow-up referral. The need for follow-up, as well as the timing and circumstances, are variable depending upon the specifics of your emergency department visit. If you don't have a primary care physician on staff, we will provide you with a referral. We always advise you to contact your personal physician following an emergency department visit to inform them of the circumstance of the visit and for follow-up with them and/or the need for any referrals to a consulting specialist. The emergency department will also refer you to a specialist when appropriate. This referral assures that you have the opportunity for follow-up care with a specialist. All of these measure are taken in an effort to provide you with optimal care, which includes your follow-up. Under all circumstances we always encourage you to contact your private physician who remains a resource for coordinating your care. When calling for follow-up care, please make the office aware that this follow-up is from your recent emergency room visit. If for any reason you are refused follow-up, please contact the [facility] at and asked to speak to the emergency department charge nurse. [facility] [address] [place] [address] [id number] [address] [address] Thank you for choosing the [facility] emergency department in [place] for your medical needs today. It was a pleasure caring for you. Today you were seen in the emergency department for knee pain. 1. You were evaluated today on an emergent basis. Your x-ray shows no fractures or dislocations. Rest, ice, elevate the extremity as able. Use Lawrence wrap and crutches to be nonweightbearing for the next 2 to 3 days. If you continue to have pain you should follow-up with an orthopedic provider as they may want to do further imaging such as an MRI for further evaluation of pain. 2. You can alternate Tylenol and ibuprofen as needed for pain and fever management. 3. If your symptoms should worsen, new symptoms develop or any of the signs and symptoms we discussed should arise please return to the emergency room or call [phone] (if needed). Sepsis Event Note (ED) - Focused Exam Vital Signs: Vital Signs Temp Pulse Resp BP Pulse Ox 04/02/21 20:38 97.4 F 88 20 124/72 98 - My Orders Last 24 Hours: My Active Orders 04/02/21 21:29 DME for Discharge [COMM] Stat 04/02/21 21:44 Acetaminophen/HYDROcodone [[place] 325-5 MG] 1 tab PO ONETIME ONE - Assessment/Plan Last 24 Hours: My Active Orders 04/02/21 21:29 DME for Discharge [COMM] Stat 04/02/21 21:44 Acetaminophen/HYDROcodone [[place] 325-5 MG] 1 tab PO ONETIME ONE
--- NOTE | 2021-04-02 21:37 | CR ---
INDICATION: Knee injury from fall off skateboard TECHNIQUE: Knee radiograph 3 views left COMPARISON: None FINDINGS: Bone: No acute fractures or aggressive bone lesions are identified. Joint: The joint spaces of the medial, lateral, and patellofemoral compartments are unremarkable. No significant knee effusion is seen. Soft tissue: Unremarkable. No radiopaque foreign bodies are seen. IMPRESSION: 1. No acute osseous injuries or abnormalities are noted. Dictated by: Austin Caballero MD @ 04/02/2021 21:35:08 (Electronically Signed)
[2021-04-02] MEDS ORDERED: Acetaminophen/HYDROcodone 325-5 MG Tab PO ONE (21:44)
== END 2021-04-02 22:20 | disposition home or self-care (01) ==
LOC: MW.ED 20:09
DX: S83.92XA Sprain of unspecified site of left knee, initial encounter (principal); Z88.0 Allergy status to penicillin; Z88.1 Allergy status to other antibiotic agents; Z79.84 Long term (current) use of oral hypoglycemic drugs; X50.1XXA Overexertion from prolonged static or awkward postures, initial encounter; Y93.21 Activity, ice skating; Y92.828 Other wilderness area as the place of occurrence of the external cause
CPT/HCPCS: 73562; 99283; A9270